=== PATIENT | female | born 1995 | race Caucasian/White ===

== ENCOUNTER 2018-07-03 05:48 | Emergency (ER) | payer SELFPAY ==
[2018-07-03 05:52] VITALS: BP 134/87; PULSE 86; RESP 20; TEMP 36.7; O2SAT 99
--- NOTE | 2018-07-03 06:05 | ED.GENADUL_ITS ---
Disposition Clinical Impression: Nausea, vomiting and diarrhea, Abdominal cramping, Hypomagnesemia Disposition: STILL A PATIENT Condition: Stable Medical Decision Making - Lab Data Results reviewed for labs ordered during visit: Yes - Medical Decision Making Patient complaining of nausea, vomiting, diarrhea with associated abdominal cramping that is intermittent in nature. Complains of abdominal pain with palpation but does not have any guarding or rebound and does not really appear overly tender with palpation. She is afebrile with normal vital signs. However , she complains of nausea and abdominal pain and not feeling well. She does not look toxic. She does not have a surgical abdomen. Will place IV to give a liter of saline and Zofran and check abdominal labs. CBC unremarkable. White count is normal. test is negative. Chemistries unremarkable other than magnesium being low at 1.5. She has been ordered for IV replacement. Liver function normal. On reevaluation patient continues to complain of not feeling well. Her abdomen remained soft and nontender. I would not image her at this point. Will finish the fluids as well as the magnesium and reevaluate. She will be signed out to oncoming physician Dr. Vance Quinn.. History of Present Illness - General Chief complaint: Nausea/Vomit/Diar Stated complaint: UNKNOWN Time Seen by Provider: 07/03/18 05:56 Source: patient Mode of arrival: ambulatory Limitations: no limitations - History of Present Illness Initial comments: Patient presents to ED with complaints of not feeling well, nausea, vomiting, diarrhea. She is also complaining of diffuse abdominal pain as well as epigastric pain. She has had chills and sweats overnight. She has been ill now for 5 days now. She finally came in this morning because she just feels worse and achy all over. She denies any urinary symptoms. Her last menstrual period was 3 weeks ago. She denies being . She denies chest pain or shortness of breath. - Related Data Unknown [No Known Home Meds] 07/03/18 Allergies Allergy/AdvReac Type Severity Reaction Status Date / Time No Known Allergies Allergy Unverified 07/03/18 05:53 Review of Systems Constitutional: chills, diaphoresis, malaise. denies: fever (never took temperature) ENT: denies: ear pain, congestion Respiratory: denies: cough, shortness of breath Cardiovascular: denies: chest pain Gastrointestinal: abdominal pain, nausea, vomiting, diarrhea. denies: hematemesis, melena, hematochezia Genitourinary: denies: urgency, dysuria, frequency, hematuria Musculoskeletal: back pain, myalgia Skin: denies: rash Neurological: denies: headache, weakness, numbness Past Medical History - Past Medical History Medical history: no medical history Surgical history: appendectomy - Social History Smoking status: current everyday smoker Alcohol use: rarely Drug use: none General Exam - General Limitations: no limitations General appearance: alert, in no apparent distress - Head Head exam: Present: atraumatic, normocephalic - Eye Eye exam: Present: normal apperance. Absent: scleral icterus - Respiratory Respiratory exam: Present: normal lung sounds bilaterally - Cardiovascular Cardiovascular Exam: Present: regular rate, normal rhythm, normal heart sounds - GI/Abdominal GI/Abdominal exam: Present: soft. Absent: distended, tenderness, guarding, rebound - Extremities Exam Extremities exam: Present: normal inspection, full ROM - Back Exam Back exam: Present: normal inspection, tenderness. Absent: CVA tenderness (R), CVA tenderness (L), vertebral tenderness - Neurological Exam Neurological exam: Present: alert, oriented X3, CN II-XII intact, normal gait. Absent: motor sensory deficit - Psychiatric Psychiatric exam: Present: normal affect, normal mood - Skin Skin exam: Present: warm, dry, intact Course Vital Signs - 24 hr 07/03/18 05:52 Temperature 98.1 F Pulse 86 Respiratory 20 Rate Blood Pressure 134/87 Pulse Oximetry 99
[2018-07-03] MEDS: Normal Saline 1,000 ML 1000 ML IV (06:11)
[2018-07-03] MEDS: Ondansetron 4 MG/2 ML VIAL IVP (06:11)
[2018-07-03 06:18] LABS: Abs Immature Grans 0.01 k/cumm (0.0-0.09); Absolute Basophil Count 0.01 k/cumm (0.0-0.2); Absolute Eosinophil Count 0.18 k/cumm (0.0-0.7); Absolute Lymphocyte Count 1.72 k/cumm (1.2-3.4); Absolute Monocyte Count 0.69 k/cumm (0.11-0.7); Absolute Neutrophil Count 3.39 k/cumm (1.2-6.7); Basophils % 0.2; HCT 40.3 % (36.0-46.0); HGB 13.8 g/dL (12.0-15.5); Immature Grans % 0.2; Lymphocytes % 28.7; Mean Corp. HGB Concentration 34.2 g/dL (32.0-36.0); Mean Corpuscular Hemoglobin 32.8 pg (27.0-33.0); Mean Corpuscular Volume 95.7 fL (80-95); Mean Platelet Volume 9.4 fL (8.0-11.0); Monocytes % 11.5; Neutrophils % 56.4; Platelet Count 226 x1000/uL (130-400); RBC 4.21 m/cumm (4.00-5.20); RBC Distribution Width 12.1 % (11.7-14.6)
[2018-07-03 06:29] LABS: ALT 21 U/L (12-78); AST 14 U/L (15-37); Albumin 3.6 g/dL (3.4-5.0); Alkaline Phosphatase 57 U/L (46-116); Anion Gap 7.4 mmol/L (3-11); BUN 8 mg/dL (7-18); Bilirubin, Total 0.3 mg/dL (0.2-1.0); CO2 25.6 mmol/L (21.0-32.0); CREATININE 0.66 mg/dL (0.55-1.02); Calcium 7.9 mg/dL (8.5-10.1); Chloride 104 mmol/L (98-107); Glucose 92 mg/dL (70-100); Lipase 98 U/L (73-393); Magnesium 1.5 mg/dL (1.8-2.4); Potassium 3.7 mmol/L (3.5-5.1); Sodium 137 mmol/L (136-145); Total Protein 6.6 g/dL (6.4-8.2)
[2018-07-03 06:32] LABS: HCG Qual (Serum) Negative
[2018-07-03] MEDS: MAGNESIUM SULFATE 2 GM/50 ML BAG IVPB (06:41)
--- NOTE | 2018-07-03 08:54 | ED.FU ---
Disposition Clinical Impression: Nausea, vomiting and diarrhea, Abdominal cramping, Hypomagnesemia Disposition: HOME Instructions: Hypomagnesemia (ED), Acute Nausea and Vomiting (ED) Additional Instructions: Please follow-up with your primary care physician. Return to the emergency department immediately for any worsening or new concerning symptoms. Prescriptions: Magnesium Oxide [Mag-Ox 400] 400 mg PO BID #30 tab Referrals: HOWARD MOORE [Primary Care Provider] - Medical Decision Making - Lab Data Laboratory Tests 07/03/18 07/03/18 07/03/18 06:10 06:10 06:10 WBC 6.00 RBC 4.21 Hgb 13.8 Hct 40.3 MCV 95.7 H MCH 32.8 MCHC 34.2 RDW 12.1 Plt Count 226 MPV 9.4 Immature Gran % 0.2 Neutrophils % 56.4 Lymphocytes % 28.7 Monocytes % 11.5 Eosinophils % 3.0 Basophils % 0.2 Absolute Neutrophils 3.39 Absolute Lymphocytes 1.72 Absolute Monocytes 0.69 Absolute Eosinophils 0.18 Absolute Basophils 0.01 Sodium 137 Potassium 3.7 Chloride 104 Carbon Dioxide 25.6 Anion Gap 7.4 BUN 8 Creatinine 0.66 Estimated GFR/1.73 m2 >= 60.00 Glucose 92 Calcium 7.9 L Magnesium 1.5 L Total Bilirubin 0.3 AST 14 L ALT 21 Alkaline Phosphatase 57 Total Protein 6.6 Albumin 3.6 Lipase 98 Serum HCG, Qual Negative Results reviewed for labs ordered during visit: Yes - Medical Decision Making 8:00 -- Care signed out by Dr. Joya at [address] Joya's note regarding initial ED presentation and course. Briefly this is a 23-year-old female who presents with 5 days of nausea, diarrhea, diffuse abdominal discomfort, nonfocal abdominal exam with no concern for acute surgical pathology. Labs reviewed by Dr. Joya and patient was found to have a low magnesium of 1.5. IV magnesium infusion was ordered. Plan at sign out was to follow-up post IV infusion and reassess the patient for likely discharge. 8:55 --IV infusion completed. Patient reassessed and appears comfortable with no acute distress. Feels better. Repeat abd exam: no focal tenderness, still will mild diffuse tenderness, nonrigid, no rebound. Pt request discharge and work note. I reviewed results with the patient and advised that she take magnesium supplementation and we discussed dietary changes. Patient was encouraged to follow-up with her primary care physician and return should have any worsening or new concerning symptoms. urine preg neg. Care Signed Out By:: Dr. Joya - Vital Signs Recent Vitals - 8H: Vital Signs - 8 hr 07/03/18 05:52 Temperature 36.7 C Pulse 86 Respiratory 20 Rate Blood Pressure 134/87 Pulse Oximetry 99 - Continuation of Care Continuation of Care Plan: Reassess after mag IV infusion.
[2018-07-03 09:16] VITALS: BP 123/81; PULSE 86; RESP 17; TEMP 36.6; O2SAT 99
== END 2018-07-03 09:33 | disposition home or self-care (01) ==
PROVIDERS: Emergency Medicine; Emergency Provider Student in an Organized Health Care Education/Training Program; PCP Family Medicine
DX: R11.2 Nausea with vomiting, unspecified (principal); R19.7 Diarrhea, unspecified; E87.6 Hypokalemia; R10.84 Generalized abdominal pain
CPT/HCPCS: 36415; 80053; 81025; 83690; 96361; 96365; 96375; 99284; 83735; 84703; 85025; J2405